=== PATIENT | male | born 1940 | race Caucasian/White ===

== ENCOUNTER 2016-06-13 08:39 | Emergency (ER) | payer MEDICARE, MEDICAID ==
[2016-06-13 09:14] LABS: ABSOLUTE NEUTROPHIL COUNT 4.3 K/mm3 (1.8-7.7); BASO % 0.2 % (0.2-1.0); EOS # 0.2 (0.0-0.5); EOS % 2.8 % (0.9-2.9); HEMATOCRIT 39.2 % (32.0-52.0); HEMOGLOBIN 12.7 gm/l (14.0-18.0); IMM NEUT% 0.4 % (0-1); LYMPH # 0.7 (1.0-4.8); LYMPH % 12.6 % (15-45); MEAN CORPUSCULAR HEMOGLOBIN 29.8 pg (27.0-31.0); MEAN CORPUSCULAR HGB CONC 32.4 g/dl (33.0-37.0); MEAN PLATELET VOLUME 9.5 fl (7.4-10.4); MONO # 0.5 (0.0-0.8); PLATELET COUNT 107 K/mm3 (130-400); RED CELL DISTRIBUTION WIDTH 14.2 % (11.5-14.5)
--- NOTE | 2016-06-13 09:30 | RAD ---
EXAMINATION:CHEST - 2 VIEWS CLINICAL INDICATION: Weakness and shortness of breath. COMPARISON:none FINDINGS: There is borderline cardiomegaly. Aortic ectasia is noted. There is no adenopathy identified. There is no pleural effusion. There is mild basilar atelectasis right greater than left. The osseous structures are unremarkable for age. Hemostatic clips are noted within the abdomen. IMPRESSION: Cardiomegaly with aortic ectasia. There is mild basilar atelectasis. No pulmonary edema or pleural effusion is identified.
[2016-06-13 09:32] LABS: ALB/GLOB RATIO 1.2 (>1.0); ALBUMIN 3.5 gm/dL (3.5-5.7); CALCIUM 9.2 mg/dL (8.6-10.3); MAGNESIUM 1.8 mg/dL (1.9-2.7)
== END 2016-06-13 10:07 | disposition home or self-care (01) ==
LOC: ED 08:39
DX: R06.02 Shortness of breath (principal); I48.91 Unspecified atrial fibrillation; N18.6 End stage renal disease; Z99.2 Dependence on renal dialysis

== ENCOUNTER 2016-08-15 02:55 | Emergency (ER) | payer MEDICARE, MEDICAID ==
[2016-08-15 03:23] LABS: ABSOLUTE NEUTROPHIL COUNT 8.2 K/mm3 (1.8-7.7); BASO % 0.2 % (0.2-1.0); EOS # 0.1 (0.0-0.5); EOS % 1.1 % (0.9-2.9); HEMATOCRIT 31.1 % (32.0-52.0); HEMOGLOBIN 9.7 gm/l (14.0-18.0); IMM NEUT% 0.3 % (0-1); LYMPH # 0.3 (1.0-4.8); LYMPH % 3.4 % (15-45); MEAN CELL VOLUME 95.7 fl (80.0-94.0); MEAN CORPUSCULAR HEMOGLOBIN 29.8 pg (27.0-31.0); MEAN CORPUSCULAR HGB CONC 31.2 g/dl (33.0-37.0); MEAN PLATELET VOLUME 9.7 fl (7.4-10.4); MONO # 0.7 (0.0-0.8); MONO % 7.5 % (4-12); NEUT % 87.5 % (43-75); PLATELET COUNT 150 K/mm3 (130-400); RED CELL DISTRIBUTION WIDTH 15.8 % (11.5-14.5)
[2016-08-15 03:33] LABS: ALB/GLOB RATIO 1.1 (>1.0); ALBUMIN 3.5 gm/dL (3.5-5.7); CALCIUM 9.5 mg/dL (8.6-10.3)
[2016-08-15] MEDS ORDERED: SODIUM CHLORIDE 0.9% 1,000 ML ONE (03:49)
[2016-08-15] MEDS ORDERED: PHYTONADIONE 10 MG/1 ML AMP ONE (04:14)
[2016-08-15 04:26] LABS: INR 2.64; PROTHROMBIN TIME 29.2 SECONDS (9.3-11.4)
== END 2016-08-15 06:11 | disposition home or self-care (01) ==
LOC: ED 02:55
DX: K92.2 Gastrointestinal hemorrhage, unspecified (principal); I48.91 Unspecified atrial fibrillation; I49.9 Cardiac arrhythmia, unspecified; D64.9 Anemia, unspecified; N18.6 End stage renal disease; Z79.01 Long term (current) use of anticoagulants; Z99.2 Dependence on renal dialysis
CPT/HCPCS: 85025 ×2; 80053; 85610 ×2; 99282; 99283 ×3; 96374; 36415; J3430; J7030

== ENCOUNTER 2016-08-15 16:37 | Emergency (ER) | payer MEDICARE, MEDICAID ==
[2016-08-15 17:43] LABS: ABSOLUTE NEUTROPHIL COUNT 5.1 K/mm3 (1.8-7.7); BASO % 0.3 % (0.2-1.0); EOS # 0.1 (0.0-0.5); EOS % 1.5 % (0.9-2.9); HEMATOCRIT 28.3 % (32.0-52.0); HEMOGLOBIN 8.8 gm/l (14.0-18.0); IMM NEUT% 0.5 % (0-1); LYMPH # 0.9 (1.0-4.8); LYMPH % 12.8 % (15-45); MEAN CELL VOLUME 97.6 fl (80.0-94.0); MEAN CORPUSCULAR HEMOGLOBIN 30.3 pg (27.0-31.0); MEAN CORPUSCULAR HGB CONC 31.1 g/dl (33.0-37.0); MEAN PLATELET VOLUME 9.7 fl (7.4-10.4); MONO # 0.5 (0.0-0.8); NEUT % 76.9 % (43-75); PLATELET COUNT 130 K/mm3 (130-400)
[2016-08-15 17:49] LABS: INR 1.44; PROTHROMBIN TIME 15.4 SECONDS (9.3-11.4)
== END 2016-08-15 18:21 | disposition home or self-care (01) ==
LOC: ED 16:37
DX: D64.9 Anemia, unspecified (principal); I48.91 Unspecified atrial fibrillation; N18.6 End stage renal disease; Z79.01 Long term (current) use of anticoagulants; Z99.2 Dependence on renal dialysis